=== PATIENT | male | born 1960 | race Caucasian/White ===

== ENCOUNTER 2017-02-01 13:23 | Emergency (ER) | payer MEDICARE, MEDICAID ==
[2017-02-01 13:53] VITALS: BP 151/77
--- NOTE | 2017-02-01 15:04 | EDM.PDOC ---
[id number] 4d LEFT FOOT, ? INFECTION Time Seen by Provider: 02/01/17 15:04 Source: Reports: Patient, RN, RN notes reviewed History Limitations: Reports: No limitations - History of Present Illness INITIAL COMMENTS - FREE TEXT/NARRATIVE: Left foot and lower leg with intermittent sharp jabbing pain x3 days. Seem to be triggered with weight bearing and touch or pressure. Denies injury. Just completed antibiotics for LLE ulcers on anterior left lower leg and plantar foot. Denies swelling, redness, pale skin or increased warmth or cold to LLE. Pain free currently. Severity: severe Associated Symptoms: Reports: no other symptoms Allergies/ADRs: Allergies acetaminophen [From Percocet] Allergy (Verified 02/01/17 13:38) Insomnia atorvastatin Allergy (Verified 02/01/17 13:38) Diarrhea bupropion [From Wellbutrin] Allergy (Verified 02/01/17 13:38) Other oxycodone [From Percocet] Allergy (Verified 02/01/17 13:38) Insomnia Home Medications: Ambulatory Orders Albuterol Sulfate [Proair Respiclick] 2 puff INH Q6H PRN 10/26/16 [Confirmed ] Aspirin [Halfprin] 81 mg PO DAILY 10/26/16 [Confirmed 10/26/16] Beclomethasone Dipropionate [Qvar] 1 puff INH ASDIRECTED 10/26/16 [Confirmed ] Cyclobenzaprine [Flexeril] 10 mg PO TID 10/26/16 [Confirmed 10/26/16] Gabapentin [Neurontin] 900 mg PO BID 10/26/16 [Confirmed 10/26/16] Hydrocodone/Acetaminophen [Hydrocodon-Acetaminophen 5-325] 1 - 2 tab PO Q6H PRN 10/26/16 [Confirmed 10/26/16] Insulin Glarg,Human.Rec.Analog [LantUS Solostar] 25 unit SQ BEDTIME 10/26/16 [ Confirmed 10/26/16] Levothyroxine Sodium [Synthroid] 137 mcg PO ACBREAKFAST 10/26/16 [Confirmed ] Lisinopril [Zestril] 40 mg PO DAILY 10/26/16 [Confirmed 10/26/16] Nebivolol [Bystolic] 10 mg PO DAILY 10/26/16 [Confirmed 10/26/16] Simvastatin [Simvastatin] 40 mg PO DAILY 10/26/16 [Confirmed 10/26/16] Vardenafil HCl [Levitra] 20 mg PO DAILY 10/26/16 [Confirmed 10/26/16] amLODIPine [Norvasc] 10 mg PO DAILY 10/26/16 [Confirmed 10/26/16] metFORMIN [Glucophage] 500 mg PO DAILY 10/26/16 [Confirmed 10/26/16] Past Medical History Cardiovascular History: Reports: High cholesterol, Hypertension, Other (see below) Other Cardiovascular History: PERIPHERAL ARTERY DISEASE Respiratory History: Reports: Asthma Genitourinary History: Reports: Other (see below) Other Genitourinary History: ERECTILE DYSFUNCTION Musculoskeletal History: Reports: Fracture, Other (see below) Other Musculoskeletal History: HX OF RIB FRACTURE. HX OF OSTEOMYELITIS Psychiatric History: Reports: Depression Other Psychiatric History: TOBACCO DEPENDENCE Endocrine/Metabolic History: Reports: Diabetes, type I, Hypothyroidism Dermatologic History: Reports: Other (see below) Other Dermatologic History: HX OF MRSA. SKIN PLASTY AND EXCISION DIABETIC ULCER LEFT FOOT - Past Surgical History HEENT Surgical History: Reports: Adenoidectomy, Tonsillectomy Cardiovascular Surgical History: Reports: Other (see below) Other Cardiovascular Surgeries/Procedures: PERIPHERAL VASCULAR ANGIO. VASCULAR ENDARTERECTOMY. FEMORAL EMBOLECTOMY. VASCULAR ENDOVASCULAR ANGIOGRAM - PLASTY OF LEFT POPLITEAL - 3VRO GI Surgical History: Reports: Colonoscopy Musculoskeletal Surgical History: Reports: Carpal tunnel, Other (see below) ( Left fore foot amputations. LLE arterial stents.) Other Musculoskeletal Surgeries/Procedures:: RIGHT CARPAL TUNNEL RELEASE. MULTIPLE SURGERIES ON BILAT FEET. LEFT GREAT TOE AMPUTATION. RIGHT 3RD DIGIT TOE AMPUTATION. ORIF OF LEFT HAND. HEEL SPUR REMOVAL RIGHT Social & Family History - Family History Family Medical History: Noncontributory - Tobacco Use Smoking Status *Q: Current Every Day Smoker Years of Tobacco use: 20 Packs/Tins Daily: 1 - Caffeine Use Caffeine Use: Reports: None - Recreational Drug Use Recreational Drug Use: No Review of Systems - Review of Systems Review Of Systems: ROS reveals no pertinent complaints other than HPI. Trauma Exam - Physical Exam Exam: See Below Exam Limited By: No limitations General Appearance: Reports: alert, WD/WN, no apparent distress Respiratory Exam: Reports: no respiratory distress, lungs clear, normal breath sounds Cardiovascular: Reports: normal peripheral pulses Back: Reports: full range of motion, normal inspection, non-tender Extremities: Reports: other (chronic venous stasis to bilateral lower extremities. Healing ulcers at left anterior lower extensor and plantar foot. Negative Homans sign. Nontender. Normal temperature to palpation. ) Course - Vital Signs Last Recorded V/S: Last Vital Signs Temp 36.2 C 02/01/17 13:46 Pulse 87 02/01/17 13:46 Resp 14 02/01/17 13:46 BP 151/77 H 02/01/17 13:46 Pulse Ox 100 02/01/17 13:46 Departure - Departure Time of Disposition: 15:14 Disposition: Home, Self-Care 01 Condition: fair Clinical Impression: Neuritis of left lower extremity Instructions: Neuropathic Pain Forms: ED Department Discharge Additional Instructions: Rx: Cyclobenzaprine 10mg Increase Gabapentin to three times a day for the next few days. Follow up for lower extremity ultrasound and recheck with Dr. Kellie Rick as scheduled. Return to ER if worse at any time.
== END 2017-02-01 15:26 | disposition home or self-care (01) ==
LOC: DL.ED 13:23
DX: M79.2 Neuralgia and neuritis, unspecified (principal); I87.8 Other specified disorders of veins; E10.621 Type 1 diabetes mellitus with foot ulcer; E78.00 Pure hypercholesterolemia, unspecified; I10 Essential (primary) hypertension; J45.909 Unspecified asthma, uncomplicated; F32.9 Major depressive disorder, single episode, unspecified; E03.9 Hypothyroidism, unspecified; F17.210 Nicotine dependence, cigarettes, uncomplicated; Z86.14 Personal history of Methicillin resistant Staphylococcus aureus infection; Z98.890 Other specified postprocedural states; Z88.6 Allergy status to analgesic agent; Z88.8 Allergy status to other drugs, medicaments and biological substances
CPT/HCPCS: 99282; 99283

== ENCOUNTER 2022-03-18 16:59 | Emergency (ER) | payer MEDICARE, MEDICAID ==
[2022-03-18] MEDS ORDERED: Acetaminophen/HYDROcodone 325-10 MG Tab PO ONE (17:11)
[2022-03-18] MEDS ORDERED: Silver Sulfadiazine 1% Crm 50 GM Tube TOP ONE (17:11)
[2022-03-18 17:43] VITALS: BP 168/71; PULSE 68
== END 2022-03-18 18:08 | disposition home or self-care (01) ==
LOC: DL.ED 16:59
DX: T24.212A Burn of second degree of left thigh, initial encounter (principal); T24.211A Burn of second degree of right thigh, initial encounter; T21.26XA Burn of second degree of male genital region, initial encounter; E78.00 Pure hypercholesterolemia, unspecified; I10 Essential (primary) hypertension; E03.9 Hypothyroidism, unspecified; F17.210 Nicotine dependence, cigarettes, uncomplicated; Z79.82 Long term (current) use of aspirin; Z79.899 Other long term (current) drug therapy; X15.8XXA Contact with other hot household appliances, initial encounter
CPT/HCPCS: 16020; 99283; 99283-25; A9270-GY

== ENCOUNTER 2024-03-17 10:07 | Day surgery (SDC) | payer MEDICARE, MEDICAID ==
[2024-03-17] MEDS ORDERED: Ondansetron 4 MG/2 ML SDV IVPUSH PRN (10:15)
[2024-03-17] MEDS ORDERED: Acetaminophen/Codeine 300-30 MG Tab PO PRN (10:15)
[2024-03-17] MEDS ORDERED: Acetaminophen 325 MG Tab PO PRN (10:15)
[2024-03-17] MEDS: Proparacaine 0.5% Ophth Soln 15 ML Bottle EYERT ONE ×3 (10:22→10:48)
[2024-03-17] MEDS: Moxifloxacin 0.5% Ophth Soln 3 ML Bottle EYERT ONE (10:23)
[2024-03-17] MEDS: Povidone-Iodine 5% Sterile Ophth Soln 30 ML Bottle EYERT ONE ×2 (10:23→10:48)
[2024-03-17] MEDS: Tropicamide 1% Ophth Soln 15 ML Bottle EYERT ONE (10:24)
[2024-03-17] MEDS: Phenylephrine 10% Ophth Soln 5 ML Bot EYERT ONE (10:24)
[2024-03-17] MEDS: Timolol Maleate 0.5% Ophth Soln 5 ML Bottle EYERT ONE (10:25)
[2024-03-17] MEDS: Cataract Ophth Solution EYERT ONE (10:25)
[2024-03-17] MEDS: Sodium Chloride 0.9% 10 ML Syringe FLUSH PRN (10:27)
[2024-03-17] MEDS: Dexamethasone 0.1% Ophth Soln 5 ML Bottle EYERT ONE (10:58)
[2024-03-17] MEDS: Dexamethasone 4 MG/ML SDV IOCULAR ONE (10:58)
[2024-03-17] MEDS: Lidocaine 1% 30 ML SDV ONE (11:00)
[2024-03-17] MEDS: Vancomycin 500 MG SDV EYERT ONE (11:00)
[2024-03-17] MEDS: Diclofenac Sodium 0.1% Ophth Soln 5 ML Bottle EYERT ONE (11:03)
[2024-03-17] MEDS: Apraclonidine 0.5% Ophth Soln 5 ML Bot EYERT ONE (11:03)
[2024-03-17] MEDS: Dexamethasone/Neomycin/Polymyxin B Ophth Oint 3.5 GM Tube EYERT ONE (11:04)
[2024-03-17 11:20] VITALS: PULSE 56
[2024-03-17 11:32] VITALS: BP 141/79
== END 2024-03-17 11:41 | disposition home or self-care (01) ==
LOC: DL.SDS 10:07
PROVIDERS: ATTEND Ophthalmology
DX: E11.36 Type 2 diabetes mellitus with diabetic cataract (principal); H25.811 Combined forms of age-related cataract, right eye; E11.51 Type 2 diabetes mellitus with diabetic peripheral angiopathy without gangrene; J44.9 Chronic obstructive pulmonary disease, unspecified; E11.40 Type 2 diabetes mellitus with diabetic neuropathy, unspecified; I10 Essential (primary) hypertension; E03.9 Hypothyroidism, unspecified; E78.5 Hyperlipidemia, unspecified; F17.210 Nicotine dependence, cigarettes, uncomplicated; Z79.4 Long term (current) use of insulin; Z79.890 Hormone replacement therapy; Z79.899 Other long term (current) drug therapy
CPT/HCPCS: 66984; A9270; J1100; J3370; V2787; 00142; J3490

== ENCOUNTER 2024-04-12 06:54 | Day surgery (SDC) | payer MEDICARE, MEDICAID ==
[2024-04-12] MEDS ORDERED: Ondansetron 4 MG/2 ML SDV IVPUSH PRN (07:00)
[2024-04-12] MEDS ORDERED: Acetaminophen 325 MG Tab PO PRN (07:00)
[2024-04-12] MEDS ORDERED: Acetaminophen/Codeine 300-30 MG Tab PO PRN (07:00)
[2024-04-12] MEDS: Sodium Chloride 0.9% 10 ML Syringe FLUSH PRN (07:20)
[2024-04-12] MEDS: Proparacaine 0.5% Ophth Soln 15 ML Bottle EYELF ONE ×2 (07:49→09:20)
[2024-04-12] MEDS: Moxifloxacin 0.5% Ophth Soln 3 ML Bottle EYELF ONE (07:50)
[2024-04-12] MEDS: Povidone-Iodine 5% Sterile Ophth Soln 30 ML Bottle EYELF ONE ×2 (07:52→09:20)
[2024-04-12] MEDS: Tropicamide 1% Ophth Soln 15 ML Bottle EYELF ONE (07:53)
[2024-04-12] MEDS: Phenylephrine 10% Ophth Soln 5 ML Bot EYELF ONE (07:53)
[2024-04-12] MEDS: Timolol Maleate 0.5% Ophth Soln 5 ML Bottle EYELF ONE (07:54)
[2024-04-12] MEDS: Cataract Ophth Solution EYELF ONE (07:55)
[2024-04-12] MEDS: Diclofenac Sodium 0.1% Ophth Soln 5 ML Bottle EYELF ONE (09:20)
[2024-04-12] MEDS: Apraclonidine 0.5% Ophth Soln 5 ML Bot EYELF ONE (09:20)
[2024-04-12] MEDS: Lidocaine 1% 30 ML SDV ONE (09:20)
[2024-04-12] MEDS: Dexamethasone/Neomycin/Polymyxin B Ophth Oint 3.5 GM Tube EYELF ONE (09:21)
[2024-04-12] MEDS: Vancomycin 500 MG SDV EYELF ONE (09:21)
[2024-04-12 09:54] VITALS: BP 156/82; PULSE 56
== END 2024-04-12 10:05 | disposition home or self-care (01) ==
LOC: DL.SDS 06:54
PROVIDERS: ATTEND Ophthalmology
DX: E11.36 Type 2 diabetes mellitus with diabetic cataract (principal); H25.812 Combined forms of age-related cataract, left eye; I10 Essential (primary) hypertension; I73.9 Peripheral vascular disease, unspecified; J44.9 Chronic obstructive pulmonary disease, unspecified; E03.9 Hypothyroidism, unspecified; F17.210 Nicotine dependence, cigarettes, uncomplicated; Z79.899 Other long term (current) drug therapy; Z79.890 Hormone replacement therapy; Z79.84 Long term (current) use of oral hypoglycemic drugs; Z79.4 Long term (current) use of insulin
CPT/HCPCS: 66984; A9270; J3370; V2787; 00142; J3490